=== PATIENT | male | born 1995 | race Caucasian/White ===

== ENCOUNTER 2018-09-16 21:13 | Emergency (ER) | payer BC, MEDICAID ==
[~2018-09-16] VITALS: Ht 167.6 cm; Wt 80.2 kg
[~2018-09-16 21:13] MED LIST: HYDR-4383 PO
[2018-09-16 21:53] VITALS: BP 135/92
[2018-09-16] MEDS ORDERED: acetaminophen 325mg tablet PO ONE (22:05)
[2018-09-16] MEDS ORDERED: mag hydrox/Alum hydrox/simeth 30ml oral suspension PO ONE (22:05)
== END 2018-09-16 22:30 | disposition home or self-care (01) ==
LOC: ER 21:14
DX: R07.89 Other chest pain (principal); F12.90 Cannabis use, unspecified, uncomplicated; F17.200 Nicotine dependence, unspecified, uncomplicated
CPT/HCPCS: 71045; 93005; 99283